=== PATIENT | female | born 1945 | race Caucasian/White ===

== ENCOUNTER 2022-03-14 11:35 | Observation (INO) ==
--- NOTE | 2022-03-14 12:53 | DR.H&P ---
H&P - History & Physical for Day of: H&P Date: 03/14/22 - Chief Complaint Chief Complaint: WEAKNESS, TREMORS, QUESTIONABLE TIA VS CVA - History of Present Illness History of Present Illness: Patient is a 76 year old female that is a direct adm it per Dr. Sexton's office secondary to weakness, right sided weakness and difficulty speaking. Son reports that she started having issues with speaking and forming sentences a couple of days ago. States that she developed tremors yesterday. Reports BP and BS have been stable at home. Denied chest pain or shortness of breath. Does have history of CVA. Reports that she has been taking all meds as prescribed. Patient will be admitted for further evaluation. - Past Medical History Past Medical History: Arthritis, COPD, CVA, Hypertension - Past Surgical History Surgical History: Ortho Surgery, Tonsillectomy - Family History Family Medical History: Diabetes Mellitus, Cancer, [place], Coronary Artery Disease, Heart Failure, Sudden Cardiac , Hypertension - Social History Does patient currently use any type of tobacco product: No Have you used tobacco products in the last 12 months: No Type of Tobacco Use: None Alcohol Use: None Drug Use: None - Medications Home Medications: MS No Known Drug Allergy [No Known Drug Allergy] Allergy (Verified 12/18/15 12:21) - Review of Systems Constitutional: See HPI, Weakness Eyes: See HPI ENT: See HPI Respiratory: See HPI Cardiovascular: See HPI Gastrointestinal: See HPI Genitourinary: See HPI Musculoskeletal: See HPI Skin: See HPI Neurological: See HPI, Weakness, Change in Speech - Physical Exam Vital Signs: Blood Pressure [Right Arm] 156/88 Blood Pressure [Left Arm] 131/67 Blood Pressure 156/88 Oriented: Normal Eyes: Normal Ear: Normal Nose: Normal Throat: Normal Respiratory: Clear Throughout Cardiovascular: Normal : Normal Auscultation: Bowel Sounds: Normal Palpation: Normal Tenderness: Normal Skin: Normal Musculoskeletal: Shoulder, Motor Deficit, Instability Psychiatric: Normal Mood Description: Calm, Appropriate Affect: Normal Speech Pattern: Appropriate (delayed in forming sentences. Difficulty forming words), Delayed - Assessment/Plan (1) TIA (transient ischemic attack) Status: Acute Plan: TIA vs CVA. CT head. CBC, CMP, Troponin, EKG, UA (2) Right sided weakness Status: Acute - Allergies Allergies/Adverse Reactions: Allergies Allergy/AdvReac Type Severity Reaction Status Date / Time MS No Known Drug Allergy Allergy Verified 12/18/15 12:21 [No Known Drug Allergy]
[2022-03-14] MEDS ORDERED: NS 1,000 ML IV 1,000 ML ONE (13:28)
[2022-03-14] MEDS ORDERED: NS 1,000 ML IV 1,000 ML IV ONE (13:29)
[2022-03-14 14:02] LABS: BASOPHILS # (AUTO) 0.1 X10^3/uL (0.0-0.1); BASOPHILS % (AUTO) 0.7 % (0.2-1.0); EOSINOPHILS # (AUTO) 0.2 x10^3/uL (0.0-0.2); EOSINOPHILS % (AUTO) 3.1 % (0.9-2.9); HEMATOCRIT 39.5 % (36.0-47.0); HEMOGLOBIN 13.5 g/dL (12.0-16.0); LYMPHOCYTES # (AUTO) 1.8 X10^3/uL (1.3-2.9); LYMPHOCYTES % (AUTO) 23.2 % (21.0-51.0); MEAN CORPUSCULAR HEMOGLOBIN 29.5 pg (27.0-34.0); MEAN CORPUSCULAR HGB CONC 34.3 g/dL (33.0-35.0); MEAN PLATELET VOLUME 8.5 fL (7.4-11.0); MONOCYTES # (AUTO) 0.7 x10^3/uL (0.3-0.8); MONOCYTES % (AUTO) 8.6 % (0.0-13.0); NEUTROPHILS % (AUTO) 64.4 % (42.0-75.0); RED BLOOD COUNT 4.59 X10^6/uL (3.5-5.4); RED CELL DISTRIBUTION WIDTH 13.2 % (11.6-16.5); WHITE BLOOD COUNT 7.7 X10^3/uL (3.6-10.0)
[2022-03-14 15:18] LABS: BILIRUBIN,URINE NEGATIVE (NEGATIVE); BLOOD/HEMOGLOBIN,URINE 1+ (NEGATIVE); GLUCOSE, URINE NEGATIVE (NEGATIVE); KETONES,URINE NEGATIVE (NEGATIVE); LEUKOCYTE ESTERASE ,URINE 1+ (NEGATIVE); NITRITES,URINE NEGATIVE (NEGATIVE); PROTEIN,URINE NEGATIVE (NEGATIVE); UROBILINOGEN,URINE 2+ (NORMAL)
[2022-03-14 15:29] LABS: APPEARANCE,URINE CLEAR (CLEAR); BACTERIA,URINE TRACE /HPF (NEGATIVE); COLOR,URINE YELLOW (YELLOW); SQUAMOUS EPITHELIAL CELL,UR FEW /HPF (NEGATIVE)
[2022-03-14 15:48] VITALS: BMI 31.4
--- NOTE | 2022-03-14 15:54 | CT ---
HISTORYWeakness and difficulty with speechSTUDYBRAIN W/O CONCOMPARISONMRI brain, July 18, [address] head without contrast from July 17, 2020TECHNIQUEAxial non-contrast images of the head were obtained with coronal and sagittal reformats provided.Radiation dose: 1155.20 mGy-cm total DLPFINDINGSNo abnormal areas of acute attenuation in the brain parenchyma.Lima-white differentiation remains intact.No intracranial, extra-axial, fluid collection.No hemorrhage.Periventricular chronic microvascular disease.No mass, mass effect or midline shift.Age related brain parenchymal global atrophy.No ventriculomegaly.No acute fracture.Sinuses are well aerated.Mastoid air cells are well aerated.Globes and intra-orbital contents are unremarkable.IMPRESSIONNo acute intracranial abnormality identified.Electronically signed by: Yuri Domingo (Mar 14, 2022 15:53:21)
[2022-03-14 15:57] LABS: ALANINE AMINOTRANSFERASE 13 Units/L (12-78); ALBUMIN 3.4 g/dL (3.4-5.0); ALKALINE PHOSPHATASE 66 Units/L (46-116); ASPARTATE AMINO TRANSFERASE 16 Units/L (15-37); BLOOD UREA NITROGEN 15 mg/dL (7-18); CALCIUM 8.4 mg/dL (8.5-10.1); CARBON DIOXIDE 26.3 mmol/L (21-32); CHLORIDE 102 mmol/L (98-107); COR NA(FOR HYPERGLY) 139 mmol/L (136-145); CREATININE 0.78 mg/dL (0.55-1.02); SODIUM 137 mmol/L (136-145); TOTAL PROTEIN 6.9 g/dL (6.4-8.2); TSH (3RD GENERATION) 2.558 uIU/mL (0.358-3.74); eGFR NON BLACK RACES > 60 (>60)
[2022-03-14] MEDS: NS 1,000 ML IV 1,000 ML IV SCH (16:28)
--- NOTE | 2022-03-14 16:42 | RAD ---
HISTORYright side weaknessSTUDYCHEST, 1 VIEWCOMPARISONNoneFINDINGSFocal areas of opacity are present in the upper right lung in the lower right lung suggesting bronchopneumonia. Left lung clear. No pleural effusion or pneumothorax.The heart size is magnified. Vascular calcifications are present compatible with atherosclerosis.Degenerative changes are present in the right glenohumeral joint. [Shoulder prosthesis on the left.EKG leads are noted. ]IMPRESSION1. Findings suggesting right pneumoniaElectronically signed by: Flo Wilks (Mar 14, 2022 16:41:15)
--- NOTE | 2022-03-14 17:15 | VAS ---
HISTORY: Concern for carotid artery stenosis. Syncope.EXAM: BILATERAL DOPPLER CAROTID ULTRASOUND EXAMTechnique: Multiple hannah scale and color flow Doppler images of the right and left carotid arterial system were obtained.The vertebral arterial system was evaluated as well.Findings: Nonocclusive color flow Doppler is seen throughout the right and left carotid arterial system. No hemodynamically significant carotid arterial stenosis is seen based on velocity criteria. There is mild bilateral carotid atherosclerosis and mixed atherosclerotic plaque formation of the bilateral carotid bulbs and ICAs with associated intimal thickening but without evidence for high-grade stenosis (>70%) or occlusion of the carotid arteries. The right and left vertebral artery demonstrate antegrade flow.IMPRESSION:Mild bilateral carotid atherosclerosis and mixed atherosclerotic plaque formation of the bilateral carotid bulbs and [in both] ICAs with [id number] associated carotid intimal thickening but without evidence for any associated high-grade stenosis or occlusion of the carotid arteries, based on Doppler velocity criteria.Appropriate, antegrade, vertebral arterial flow.Peak right ICA velocity: 63 centimeter/seconds.Peak right CCA velocity: 43 centimeter/seconds.Peak left ICA velocity: 108 centimeter/seconds.Peak left CCA velocity: 46 centimeter/seconds.Right ICA to CCA ratio: 1.4.Left ICA to CCA ratio: 2.0.Electronically signed by: LAURA BRAR III (Mar 14, 2022 17:14:51)
[2022-03-14] MEDS: TYLENOL 325 MG TAB PO PRN (18:31)
[2022-03-14] MEDS ORDERED: TOPROL XL PO ONE (20:01)
[2022-03-14] MEDS ORDERED: GLUCOPHAGE ONE (20:01)
[2022-03-14] MEDS ORDERED: LIORESAL ONE (20:02)
[2022-03-14] MEDS: NEURONTIN CAP 100 MG PO SCH (20:39)
[2022-03-14] MEDS: DITROPAN TAB 5 MG PO SCH (20:39)
[2022-03-14] MEDS: GLUCOPHAGE PO SCH (20:39)
[2022-03-14] MEDS: PATIENT'S HOME MEDICATION PO SCH ×2 (20:40→20:41)
[2022-03-14] MEDS: TOPROL XL PO SCH (20:40)
[2022-03-14] MEDS: LIORESAL PO SCH (21:21)
[2022-03-15] MEDS ORDERED: NYSTATIN POWDER ONE (04:06)
[2022-03-15] MEDS: TYLENOL 325 MG TAB PO PRN ×3 (04:16→20:42)
[2022-03-15 05:13] LABS: BASOPHILS # (AUTO) 0.1 X10^3/uL (0.0-0.1); BASOPHILS % (AUTO) 0.8 % (0.2-1.0); EOSINOPHILS # (AUTO) 0.3 x10^3/uL (0.0-0.2); EOSINOPHILS % (AUTO) 3.8 % (0.9-2.9); HEMATOCRIT 37.3 % (36.0-47.0); HEMOGLOBIN 12.7 g/dL (12.0-16.0); LYMPHOCYTES % (AUTO) 29.7 % (21.0-51.0); MEAN CORPUSCULAR HEMOGLOBIN 29.4 pg (27.0-34.0); MEAN CORPUSCULAR VOLUME 86.4 fL (80.0-100.0); MEAN PLATELET VOLUME 8.7 fL (7.4-11.0); MONOCYTES # (AUTO) 0.6 x10^3/uL (0.3-0.8); MONOCYTES % (AUTO) 8.6 % (0.0-13.0); NEUTROPHILS # (AUTO) 3.9 x10^3/uL (2.2-4.8); NEUTROPHILS % (AUTO) 57.1 % (42.0-75.0); RED BLOOD COUNT 4.31 X10^6/uL (3.5-5.4); RED CELL DISTRIBUTION WIDTH 13.5 % (11.6-16.5); WHITE BLOOD COUNT 6.8 X10^3/uL (3.6-10.0)
[2022-03-15 05:17] LABS: ALANINE AMINOTRANSFERASE 12 Units/L (12-78); ALBUMIN 2.9 g/dL (3.4-5.0); ALKALINE PHOSPHATASE 52 Units/L (46-116); ASPARTATE AMINO TRANSFERASE 12 Units/L (15-37); BLOOD UREA NITROGEN 10 mg/dL (7-18); CALCIUM 8.1 mg/dL (8.5-10.1); CARBON DIOXIDE 28.6 mmol/L (21-32); CHLORIDE 105 mmol/L (98-107); CHOLESTEROL 122 mg/dL (0-200); CREATININE 0.59 mg/dL (0.55-1.02); HDL CHOLESTEROL 41 mg/dL (40-60); SODIUM 141 mmol/L (136-145); TRIGLYCERIDES 138 mg/dL (0-150); eGFR NON BLACK RACES > 60 (>60)
[2022-03-15] MEDS: LIORESAL PO SCH ×3 (06:06→22:00)
[2022-03-15] MEDS ORDERED: PULMICORT NEB TX 0.5 MG NEB SCH (09:00)
[2022-03-15] MEDS: ROCEPHIN VIAL 1 GRAM 1 G in NS 100 ML IV 100 ML IV SCH ×2 (09:31→10:16)
[2022-03-15] MEDS ORDERED: TOPROL XL PO ONE ×2 (09:43→19:30)
[2022-03-15] MEDS ORDERED: GLUCOPHAGE ONE ×2 (09:43→19:30)
[2022-03-15] MEDS ORDERED: LEXAPRO ONE (09:43)
[2022-03-15] MEDS: LOVENOX INJ 40 MG SYR SC SCH (09:48)
[2022-03-15] MEDS: NEURONTIN CAP 100 MG PO SCH ×2 (09:49→20:42)
[2022-03-15] MEDS: TOPROL XL PO SCH ×2 (09:50→20:42)
[2022-03-15] MEDS: PRAVACHOL PO SCH (09:51)
[2022-03-15] MEDS: GLUCOPHAGE PO SCH ×2 (09:52→20:43)
[2022-03-15] MEDS: LEXAPRO PO SCH (09:52)
[2022-03-15] MEDS: LASIX PO SCH (09:52)
[2022-03-15] MEDS: ASPIRIN 81 MG CHEWTAB PO SCH (09:53)
[2022-03-15] MEDS: ZESTRIL TAB 10 MG PO SCH (09:53)
[2022-03-15] MEDS: PLAVIX PO SCH (09:53)
[2022-03-15] MEDS: NYSTATIN POWDER TOP SCH ×2 (09:54→20:42)
[2022-03-15] MEDS: PROTONIX TAB 40 MG PO SCH (09:54)
[2022-03-15] MEDS: DITROPAN TAB 5 MG PO SCH ×2 (09:59→20:42)
[2022-03-15] MEDS: PATIENT'S HOME MEDICATION PO SCH ×3 (10:16→20:43)
[2022-03-15] MEDS ORDERED: XOPENEX 1.25 MG/3 ML NEBULE NEB SCH (12:00)
[2022-03-15] MEDS ORDERED: SALINE 3% 15 ML NEB TX NEB ONE (12:50)
[2022-03-15] MEDS: DUONEB 0.5 MG/3 MG (3 mL) NEB SCH ×2 (12:59→16:45)
[2022-03-15] MEDS: NS 1,000 ML IV 1,000 ML IV SCH (14:11)
[2022-03-15] MEDS: ULTRAM PO PRN (14:15)
[2022-03-15] MEDS: XANAX PO PRN (18:29)
[2022-03-15] MEDS: PULMICORT NEB TX 0.5 MG NEB SCH (20:30)
[2022-03-16] MEDS: DUONEB 0.5 MG/3 MG (3 mL) NEB SCH ×4 (00:02→17:35)
[2022-03-16] MEDS: TOPROL XL PO SCH ×3 (01:25→21:00)
[2022-03-16 05:16] LABS: BASOPHILS % (AUTO) 0.5 % (0.2-1.0); EOSINOPHILS # (AUTO) 0.2 x10^3/uL (0.0-0.2); EOSINOPHILS % (AUTO) 2.7 % (0.9-2.9); HEMATOCRIT 37.8 % (36.0-47.0); HEMOGLOBIN 12.7 g/dL (12.0-16.0); LYMPHOCYTES % (AUTO) 22.7 % (21.0-51.0); MEAN CORPUSCULAR HEMOGLOBIN 29.3 pg (27.0-34.0); MEAN CORPUSCULAR HGB CONC 33.6 g/dL (33.0-35.0); MEAN PLATELET VOLUME 8.8 fL (7.4-11.0); MONOCYTES # (AUTO) 0.9 x10^3/uL (0.3-0.8); MONOCYTES % (AUTO) 9.8 % (0.0-13.0); NEUTROPHILS # (AUTO) 5.8 x10^3/uL (2.2-4.8); NEUTROPHILS % (AUTO) 64.3 % (42.0-75.0); RED BLOOD COUNT 4.34 X10^6/uL (3.5-5.4); RED CELL DISTRIBUTION WIDTH 13.5 % (11.6-16.5)
[2022-03-16] MEDS: ULTRAM PO PRN ×3 (05:22→19:35)
[2022-03-16] MEDS: LIORESAL PO SCH ×3 (05:22→21:01)
[2022-03-16 05:38] LABS: ALANINE AMINOTRANSFERASE 12 Units/L (12-78); ALBUMIN 2.9 g/dL (3.4-5.0); ALKALINE PHOSPHATASE 55 Units/L (46-116); ASPARTATE AMINO TRANSFERASE 14 Units/L (15-37); BLOOD UREA NITROGEN 12 mg/dL (7-18); CALCIUM 8.1 mg/dL (8.5-10.1); CARBON DIOXIDE 33.3 mmol/L (21-32); CHLORIDE 102 mmol/L (98-107); COR NA(FOR HYPERGLY) 139 mmol/L (136-145); CREATININE 0.81 mg/dL (0.55-1.02); SODIUM 139 mmol/L (136-145); eGFR NON BLACK RACES > 60 (>60)
--- NOTE | 2022-03-16 08:25 | MRI ---
HISTORYSLURRED SPEECH.brSTUDYBRAIN W/O CONCOMPARISONCT head 03/14/2022.TECHNIQUEMultiplanar multi-sequence MRI of the brain was obtained utilizing standard departmental protocol. Sagittal and axial T1 weighted images were obtained. Axial T2 and flair weighted images were performed as well. Axial diffusion weighted and ADC trace mapping was performed.FINDINGSThere is motion artifact on some sequences such as the axial T1 and coronal T2 limiting evaluation.Diffusion imaging: [Bright DWI signal in the right periventricular white matter image 13 series 502 has bright signal on the DWI sequence and is consistent with T2 shine through.]Susceptibility weighted imaging: [No abnormal susceptibility artifact.]Brain volume: [Appropriate for age.]Ventricles and basal cisterns: FLAIR bright signal in the basilar cisterns and 4th ventricle is nonspecific but often due to technical artifact. No abnormal signal in these locations on other pulse sequences. No hydrocephalus.Extra-axial spaces: [No extra-axial collection.]Cerebral parynchema: [No mass, hematoma, or mass effect.] Mild amount of T2 and Flair hyperintensities in the supratentorial subcortical and deep white matter.Pituitary and other sagittal midline structures: [Empty sella.]Visualized orbits: [Normal.]Paranasal sinuses and mastoid air cells: [Clear.]Bones: [Intact.]Other: [None.]IMPRESSION[No abnormal restricted diffusion to suggest acute infarct. Mild T2 and FLAIR hyperintensities in the supratentorial white matter are nonspecific but often attributed to chronic small vessel disease.]FLAIR bright signal in the basilar cisterns and 4th ventricle is nonspecific but often due to technical artifact. No abnormal signal in these locations on other pulse sequences. No hydrocephalus.Electronically signed by: Gus Connelly (Mar 16, 2022 08:24:51)
[2022-03-16] MEDS: PULMICORT NEB TX 0.5 MG NEB SCH ×2 (09:05→20:40)
[2022-03-16] MEDS ORDERED: GLUCOPHAGE ONE ×2 (09:15→20:27)
[2022-03-16] MEDS ORDERED: TOPROL XL PO ONE ×2 (09:16→20:28)
[2022-03-16] MEDS ORDERED: LEXAPRO ONE (09:16)
[2022-03-16] MEDS: LOVENOX INJ 40 MG SYR SC SCH (09:49)
[2022-03-16] MEDS: ROCEPHIN VIAL 1 GRAM 1 G in NS 100 ML IV 100 ML IV SCH (09:50)
[2022-03-16] MEDS: LASIX PO SCH (09:50)
[2022-03-16] MEDS: DITROPAN TAB 5 MG PO SCH ×2 (09:51→21:01)
[2022-03-16] MEDS: ASPIRIN 81 MG CHEWTAB PO SCH (09:51)
[2022-03-16] MEDS: LEXAPRO PO SCH (09:52)
[2022-03-16] MEDS: NYSTATIN POWDER TOP SCH ×2 (09:53→21:09)
[2022-03-16] MEDS: NEURONTIN CAP 100 MG PO SCH ×2 (09:53→21:00)
[2022-03-16] MEDS: PRAVACHOL PO SCH (09:54)
[2022-03-16] MEDS: GLUCOPHAGE PO SCH ×2 (09:54→21:03)
[2022-03-16] MEDS: PATIENT'S HOME MEDICATION PO SCH ×3 (09:54→21:45)
[2022-03-16] MEDS: PROTONIX TAB 40 MG PO SCH (09:55)
[2022-03-16] MEDS: PLAVIX PO SCH (09:55)
[2022-03-16] MEDS: ZESTRIL TAB 10 MG PO SCH (09:56)
[2022-03-16] MEDS ORDERED: POTASSIUM CHL 60 MEQ/NS 0.45% 500 ML IV PRN (12:26)
[2022-03-16] MEDS ORDERED: K-DUR TAB 20 MEQ PO PRN (12:26)
[2022-03-16] MEDS ORDERED: K-RIDER 10 MEQ/NS 100 ML 10 MEQ/100 ML BAG IV PRN (12:26)
[2022-03-16] MEDS ORDERED: KLOR-CON PO PRN (12:26)
[2022-03-16] MEDS ORDERED: POTASSIUM CHL 40 MEQ/NS 0.45% 500 ML IV PRN (12:26)
[2022-03-16] MEDS ORDERED: POTASSIUM CHLORIDE LIQ 20 MEQ UDC PO PRN (12:26)
[2022-03-16] MEDS ORDERED: MICRO K EXTEN CAP 10 MEQ PO PRN (12:26)
[2022-03-16] MEDS: MAGNESIUM SULFATE 1 GRAM/100 mL PREMIX 1 G/100 ML BAG IV PRN ×2 (13:45→16:07)
[2022-03-16] MEDS: ROBITUSSIN DM PO SCH ×3 (13:45→21:00)
[2022-03-16] MEDS: XANAX PO PRN (13:46)
[2022-03-16] MEDS: NS 1,000 ML IV 1,000 ML IV SCH (14:46)
--- NOTE | 2022-03-16 14:59 | RAD ---
HISTORYSOB Relevant Clinical InformationSTUDYCHEST, 1 [id number]/13/2022FINDINGSTrachea is midline. Stable borderline heart size, prominence of the aortic knob. No evidence of focal pneumonia, pneumothorax or pleural effusions. There is mild central vascular congestion without mehul pulmonary edema. Chronic changes at the bases. No dominant effusions no pneumothorax. Left shoulder prosthesisIMPRESSIONInterstitial chronic changes at the bases and in the perihilar region. Mild vascular cephalization without mehul pulmonary edema.Electronically signed by: Gena Schilling (Mar 16, 2022 14:58:06)
[2022-03-17] MEDS: DUONEB 0.5 MG/3 MG (3 mL) NEB SCH ×4 (00:15→17:15)
[2022-03-17] MEDS: ULTRAM PO PRN ×4 (01:15→19:37)
[2022-03-17 05:06] LABS: BASOPHILS % (AUTO) 0.4 % (0.2-1.0); EOSINOPHILS # (AUTO) 0.3 x10^3/uL (0.0-0.2); EOSINOPHILS % (AUTO) 3.1 % (0.9-2.9); HEMATOCRIT 37.6 % (36.0-47.0); HEMOGLOBIN 12.8 g/dL (12.0-16.0); LYMPHOCYTES # (AUTO) 1.8 X10^3/uL (1.3-2.9); LYMPHOCYTES % (AUTO) 21.9 % (21.0-51.0); MEAN CORPUSCULAR HEMOGLOBIN 29.3 pg (27.0-34.0); MEAN CORPUSCULAR VOLUME 86.4 fL (80.0-100.0); MEAN PLATELET VOLUME 8.4 fL (7.4-11.0); MONOCYTES # (AUTO) 0.7 x10^3/uL (0.3-0.8); MONOCYTES % (AUTO) 8.8 % (0.0-13.0); NEUTROPHILS # (AUTO) 5.3 x10^3/uL (2.2-4.8); NEUTROPHILS % (AUTO) 65.8 % (42.0-75.0); RED BLOOD COUNT 4.35 X10^6/uL (3.5-5.4); RED CELL DISTRIBUTION WIDTH 13.3 % (11.6-16.5); WHITE BLOOD COUNT 8.1 X10^3/uL (3.6-10.0)
[2022-03-17 05:27] LABS: ALANINE AMINOTRANSFERASE 18 Units/L (12-78); ALBUMIN 3.1 g/dL (3.4-5.0); ALKALINE PHOSPHATASE 64 Units/L (46-116); ASPARTATE AMINO TRANSFERASE 20 Units/L (15-37); BLOOD UREA NITROGEN 10 mg/dL (7-18); CALCIUM 8.2 mg/dL (8.5-10.1); CARBON DIOXIDE 33.3 mmol/L (21-32); CHLORIDE 98 mmol/L (98-107); COR CA(FOR HYPOALB) 8.9 mg/dL (8.5-10.1); COR NA(FOR HYPERGLY) 134 mmol/L (136-145); CREATININE 0.68 mg/dL (0.55-1.02); MAGNESIUM 2.1 mg/dL (1.7-2.9); SODIUM 134 mmol/L (136-145); TOTAL PROTEIN 6.3 g/dL (6.4-8.2); eGFR NON BLACK RACES > 60 (>60)
[2022-03-17] MEDS: LIORESAL PO SCH ×3 (05:55→21:38)
[2022-03-17] MEDS ORDERED: GLUCOPHAGE ONE ×2 (08:11→20:02)
[2022-03-17] MEDS ORDERED: LEXAPRO ONE (08:12)
[2022-03-17] MEDS ORDERED: TOPROL XL PO ONE ×2 (08:12→20:03)
[2022-03-17] MEDS: ROCEPHIN VIAL 1 GRAM 1 G in NS 100 ML IV 100 ML IV SCH (08:31)
[2022-03-17] MEDS: ROBITUSSIN DM PO SCH ×4 (08:32→20:55)
[2022-03-17] MEDS: ASPIRIN 81 MG CHEWTAB PO SCH (08:32)
[2022-03-17] MEDS: PLAVIX PO SCH (08:32)
[2022-03-17] MEDS: GLUCOPHAGE PO SCH ×2 (08:33→20:53)
[2022-03-17] MEDS: LASIX PO SCH (08:36)
[2022-03-17] MEDS: TOPROL XL PO SCH ×2 (08:36→20:53)
[2022-03-17] MEDS: PRAVACHOL PO SCH (08:37)
[2022-03-17] MEDS: DITROPAN TAB 5 MG PO SCH ×2 (08:37→20:52)
[2022-03-17] MEDS: PROTONIX TAB 40 MG PO SCH (08:37)
[2022-03-17] MEDS: NEURONTIN CAP 100 MG PO SCH ×2 (08:37→20:54)
[2022-03-17] MEDS: LEXAPRO PO SCH (08:37)
[2022-03-17] MEDS: ZESTRIL TAB 10 MG PO SCH (08:37)
[2022-03-17] MEDS: MILK OF MAGNESIA PO SCH ×2 (08:38→20:54)
[2022-03-17] MEDS: PATIENT'S HOME MEDICATION PO SCH ×3 (08:38→20:55)
[2022-03-17] MEDS: LOVENOX INJ 40 MG SYR SC SCH (08:38)
[2022-03-17] MEDS: XANAX PO PRN (08:38)
[2022-03-17] MEDS: PULMICORT NEB TX 0.5 MG NEB SCH ×2 (09:42→20:47)
[2022-03-17] MEDS: NYSTATIN POWDER TOP SCH ×2 (10:50→20:54)
[2022-03-17] MEDS: NS 1,000 ML IV 1,000 ML IV SCH (16:48)
[2022-03-17] MEDS: COLACE CAP 100 MG PO SCH (20:52)
[2022-03-17] MEDS: TYLENOL 325 MG TAB PO PRN (21:39)
[2022-03-18] MEDS: DUONEB 0.5 MG/3 MG (3 mL) NEB SCH ×5 (00:12→21:20)
[2022-03-18 04:43] LABS: BASOPHILS # (AUTO) 0.3 X10^3/uL (0.0-0.1); BASOPHILS % (AUTO) 4.5 % (0.2-1.0); EOSINOPHILS # (AUTO) 0.2 x10^3/uL (0.0-0.2); EOSINOPHILS % (AUTO) 3.3 % (0.9-2.9); HEMATOCRIT 36.2 % (36.0-47.0); HEMOGLOBIN 12.2 g/dL (12.0-16.0); LYMPHOCYTES % (AUTO) 13.9 % (21.0-51.0); MEAN CORPUSCULAR HEMOGLOBIN 29.3 pg (27.0-34.0); MEAN CORPUSCULAR HGB CONC 33.6 g/dL (33.0-35.0); MEAN CORPUSCULAR VOLUME 87.1 fL (80.0-100.0); MEAN PLATELET VOLUME 8.7 fL (7.4-11.0); MONOCYTES # (AUTO) 0.6 x10^3/uL (0.3-0.8); MONOCYTES % (AUTO) 8.3 % (0.0-13.0); NEUTROPHILS # (AUTO) 5.2 x10^3/uL (2.2-4.8); RED BLOOD COUNT 4.16 X10^6/uL (3.5-5.4); RED CELL DISTRIBUTION WIDTH 13.2 % (11.6-16.5); WHITE BLOOD COUNT 7.4 X10^3/uL (3.6-10.0)
[2022-03-18 04:56] LABS: ALANINE AMINOTRANSFERASE 13 Units/L (12-78); ALBUMIN 2.9 g/dL (3.4-5.0); ALKALINE PHOSPHATASE 69 Units/L (46-116); ASPARTATE AMINO TRANSFERASE 14 Units/L (15-37); BLOOD UREA NITROGEN 8 mg/dL (7-18); CALCIUM 8.1 mg/dL (8.5-10.1); CARBON DIOXIDE 33.7 mmol/L (21-32); CHLORIDE 100 mmol/L (98-107); COR NA(FOR HYPERGLY) 138 mmol/L (136-145); CREATININE 0.71 mg/dL (0.55-1.02); SODIUM 137 mmol/L (136-145); TOTAL PROTEIN 6.1 g/dL (6.4-8.2); eGFR NON BLACK RACES > 60 (>60)
[2022-03-18] MEDS: LIORESAL PO SCH ×3 (06:03→21:03)
[2022-03-18] MEDS: ULTRAM PO PRN ×2 (06:03→20:40)
[2022-03-18] MEDS ORDERED: GLUCOPHAGE ONE ×2 (08:36→20:12)
[2022-03-18] MEDS ORDERED: LEXAPRO ONE (08:37)
[2022-03-18] MEDS ORDERED: TOPROL XL PO ONE ×2 (08:37→20:13)
[2022-03-18] MEDS: GLUCOPHAGE PO SCH ×2 (08:49→20:42)
[2022-03-18] MEDS: ASPIRIN 81 MG CHEWTAB PO SCH (08:51)
[2022-03-18] MEDS: ZESTRIL TAB 10 MG PO SCH (08:54)
[2022-03-18] MEDS: ROCEPHIN VIAL 1 GRAM 1 G in NS 100 ML IV 100 ML IV SCH (08:54)
[2022-03-18] MEDS: PATIENT'S HOME MEDICATION PO SCH ×3 (08:55→20:49)
[2022-03-18] MEDS: PULMICORT NEB TX 0.5 MG NEB SCH ×2 (08:55→21:20)
[2022-03-18] MEDS: TOPROL XL PO SCH ×2 (08:55→20:43)
[2022-03-18] MEDS: PROTONIX TAB 40 MG PO SCH (08:55)
[2022-03-18] MEDS: NEURONTIN CAP 100 MG PO SCH ×2 (08:56→20:39)
[2022-03-18] MEDS: LEXAPRO PO SCH (08:56)
[2022-03-18] MEDS: MILK OF MAGNESIA PO SCH ×2 (08:57→20:50)
[2022-03-18] MEDS: ROBITUSSIN DM PO SCH ×4 (08:57→20:39)
[2022-03-18] MEDS: PRAVACHOL PO SCH (08:58)
[2022-03-18] MEDS: PLAVIX PO SCH (08:58)
[2022-03-18] MEDS: LOVENOX INJ 40 MG SYR SC SCH (08:59)
[2022-03-18] MEDS: LASIX PO SCH (08:59)
[2022-03-18] MEDS: DITROPAN TAB 5 MG PO SCH ×2 (09:00→20:43)
[2022-03-18] MEDS: NYSTATIN POWDER TOP SCH ×2 (09:00→20:50)
[2022-03-18] MEDS: NS 1,000 ML IV 1,000 ML IV SCH ×2 (14:40→16:36)
[2022-03-18] MEDS: COLACE CAP 100 MG PO SCH (20:43)
[2022-03-19 04:45] LABS: BASOPHILS # (AUTO) 0.1 X10^3/uL (0.0-0.1); BASOPHILS % (AUTO) 0.7 % (0.2-1.0); EOSINOPHILS # (AUTO) 0.3 x10^3/uL (0.0-0.2); EOSINOPHILS % (AUTO) 4.7 % (0.9-2.9); HEMATOCRIT 36.8 % (36.0-47.0); HEMOGLOBIN 12.4 g/dL (12.0-16.0); LYMPHOCYTES # (AUTO) 1.7 X10^3/uL (1.3-2.9); LYMPHOCYTES % (AUTO) 22.7 % (21.0-51.0); MEAN CORPUSCULAR HEMOGLOBIN 29.4 pg (27.0-34.0); MEAN CORPUSCULAR HGB CONC 33.7 g/dL (33.0-35.0); MEAN CORPUSCULAR VOLUME 87.2 fL (80.0-100.0); MEAN PLATELET VOLUME 8.5 fL (7.4-11.0); MONOCYTES # (AUTO) 0.6 x10^3/uL (0.3-0.8); MONOCYTES % (AUTO) 8.5 % (0.0-13.0); NEUTROPHILS # (AUTO) 4.6 x10^3/uL (2.2-4.8); NEUTROPHILS % (AUTO) 63.4 % (42.0-75.0); RED BLOOD COUNT 4.22 X10^6/uL (3.5-5.4); RED CELL DISTRIBUTION WIDTH 13.3 % (11.6-16.5); WHITE BLOOD COUNT 7.3 X10^3/uL (3.6-10.0)
[2022-03-19 05:02] LABS: ALANINE AMINOTRANSFERASE 14 Units/L (12-78); ALKALINE PHOSPHATASE 69 Units/L (46-116); ASPARTATE AMINO TRANSFERASE 17 Units/L (15-37); BLOOD UREA NITROGEN 11 mg/dL (7-18); CALCIUM 8.4 mg/dL (8.5-10.1); CARBON DIOXIDE 36.4 mmol/L (21-32); CHLORIDE 98 mmol/L (98-107); COR CA(FOR HYPOALB) 9.2 mg/dL (8.5-10.1); COR NA(FOR HYPERGLY) 135 mmol/L (136-145); CREATININE 0.76 mg/dL (0.55-1.02); SODIUM 134 mmol/L (136-145); TOTAL PROTEIN 6.3 g/dL (6.4-8.2); eGFR NON BLACK RACES > 60 (>60)
[2022-03-19] MEDS: LIORESAL PO SCH (05:57)
[2022-03-19] MEDS: PULMICORT NEB TX 0.5 MG NEB SCH (08:26)
[2022-03-19] MEDS: DUONEB 0.5 MG/3 MG (3 mL) NEB SCH ×2 (08:26→13:02)
[2022-03-19] MEDS ORDERED: TOPROL XL PO ONE (09:01)
[2022-03-19] MEDS ORDERED: GLUCOPHAGE ONE (09:01)
[2022-03-19] MEDS ORDERED: LEXAPRO ONE (09:01)
[2022-03-19] MEDS: LOVENOX INJ 40 MG SYR SC SCH (09:30)
[2022-03-19] MEDS: ROCEPHIN VIAL 1 GRAM 1 G in NS 100 ML IV 100 ML IV SCH (09:30)
[2022-03-19] MEDS: ROBITUSSIN DM PO SCH ×2 (09:31→13:32)
[2022-03-19] MEDS: PLAVIX PO SCH (09:31)
[2022-03-19] MEDS: NEURONTIN CAP 100 MG PO SCH (09:31)
[2022-03-19] MEDS: LEXAPRO PO SCH (09:31)
[2022-03-19] MEDS: ASPIRIN 81 MG CHEWTAB PO SCH (09:31)
[2022-03-19] MEDS: DITROPAN TAB 5 MG PO SCH (09:32)
[2022-03-19] MEDS: PRAVACHOL PO SCH (09:32)
[2022-03-19] MEDS: PATIENT'S HOME MEDICATION PO SCH (09:33)
[2022-03-19] MEDS: LASIX PO SCH (09:33)
[2022-03-19] MEDS: ZESTRIL TAB 10 MG PO SCH (09:33)
[2022-03-19] MEDS: GLUCOPHAGE PO SCH (09:34)
[2022-03-19] MEDS: TOPROL XL PO SCH (09:34)
[2022-03-19] MEDS: NYSTATIN POWDER TOP SCH (09:35)
[2022-03-19] MEDS: MILK OF MAGNESIA PO SCH (09:35)
[2022-03-19] MEDS: PROTONIX TAB 40 MG PO SCH (09:35)
[2022-03-19 12:56] VITALS: BP 122/62
--- NOTE | 2022-03-19 13:26 | RAD ---
HISTORYSOBSTUDYCHEST x-ray, 1 VIEWCOMPARISONX-ray 03/16/2022FINDINGSHeart is probably normal in size. Interstitial densities in the lungs appears slightly less prominent likely due to improved pulmonary edema. There is likely COPD and chronic interstitial lung disease. No pneumothorax or pleural effusion is seen. Left TSA and prominent arthritic changes in the right shoulder. Multiple calcified loose bodies are suspected in right shoulder.IMPRESSIONDiminished interstitial densities in the lungs likely represent improved pulmonary edema. There are likely COPD chronic interstitial lung disease changes.Electronically signed by: Jonathan Olmstead (Mar 19, 2022 13:25:59)
--- NOTE | 2022-05-01 23:47 | PCM.DCPLAN ---
Discharge Plan - Discharge Plan Hospital Course: Admit date 03/14/22 Discharge date 03/19/22 DOS 03/19/22 Admit diagnosis (1) TIA (transient ischemic attack) (2) Right sided weakness Discharge diagnosis TIA, Pneumonia, Hypertension, Right sided weakness Hospital Course Ms. Disla is a 76-year-old white female admitted from Dr. Brownlee's [place] office with suspected new onset CVA. She has had a history of a CVA reported per her family. Her CT on admission was without acute findings. She did have an MRI also without any signs of acute mass, hemorrhage, or CVA. Her son was concerned that she may need rehab. The patient does not want to do inpatient rehab. She did agree to physical therapy in the home as well as home health, and we are going to arrange for that upon discharge. Patient was treated for pneumonia with IV abx, breathing treatments, resp therapy. Patient's labs improved to baseline. Patient's neurological status returned to baseline. Blood and urine cultures negative; sputum culture positive. Patient discharged home with po antibiotics and to follow up with pcp. Discharge time spent >35 mins. Disposition: HOME HEALTH SERVICE Condition: Stable Health Concerns: Post Hospitalization: new medications and changes needed to prevent readmission or further decline. Pt educated and given instructions on all concerns. Care Plan Goals: Problem: Activity Intolerance Goal: Increased tolerance to activity Instructions: Follow provided instructions. Follow up with primary physician as directed. Contact primary care physician or report to the closest Emergency Room if condition worsens. Plan of Treatment: Continue with present treatment and follow up plan. Pt is to keep follow up appointment as instructed and take medications as ordered. Prescriptions: Continued aspirin 81 mg Tablet 81 mg PO DAILY baclofen 10 mg tablet 10 mg PO TID clopidogrel 75 mg tablet 75 mg PO HS escitalopram oxalate 10 mg tablet 10 mg PO DAILY furosemide 40 mg tablet 40 mg PO DAILY gabapentin 100 mg capsule 200 mg PO HS icosapent ethyl 1 gram capsule 2 g PO BID lisinopril 10 mg tablet 10 mg PO DAILY metformin 500 mg tablet 250 mg PO BID metoprolol succinate 100 mg tablet extended release 24 hr 100 mg PO BID nortriptyline 25 mg capsule 25 mg PO HS oxybutynin chloride 5 mg tablet 5 mg PO BID pantoprazole 40 mg tablet,delayed release (DR/EC) 40 mg PO DAILY pravastatin 80 mg tablet 80 mg PO HS No Action Trelegy Ellipta 100-62.5-25 mcg Blister With Device 1 inh INHALATION Q24H Qty: 1 RF: 0 - Follow ups/Referrals Follow ups/Referrals: KIM FUNG [STAFF PHYSICIAN] - (Referral sent to Vickie on 03/16/22) MANDIE BROWNLEE [STAFF PHYSICIAN] - 03/28/22 1:30 pm (Appointment with [place]) - Instructions Instructions: Fall Prevention in the Home, Adult, Ewfj-[id number], Stroke Prevention, Jzee-yx-[id number], Chronic Obstructive Pulmonary Disease, Klpz-kh-Ymdm, Type 2 Diabetes Mellitus, Self-Care, Adult, Cmcu-ou-Glnw, Transient Ischemic Attack, Znek-ev-Ynwv, Weakness, Iqqq-hy-Tlra, Hypertension, Adult, Vdfo-kv-Hgyk Forms: Precautions for [facility], Patient Portal, Social Distancing Print Language: HAITIAN
== END 2022-03-19 15:44 | disposition home health service (06) ==
LOC: MED/SURG 12:41 → INTOOBSV 12:41 → ICU 14:25 → MED/SURG 03-16 11:05
PROVIDERS: ADMIT Internal Medicine; ATTEND Internal Medicine
DX: Z20.822 Contact with and (suspected) exposure to COVID-19; J44.9 Chronic obstructive pulmonary disease, unspecified; R26.89 Other abnormalities of gait and mobility; I10 Essential (primary) hypertension; R06.02 Shortness of breath; R55 Syncope and collapse; J15.1 Pneumonia due to Pseudomonas; E03.8 Other specified hypothyroidism; R53.1 Weakness; R47.89 Other speech disturbances; G45.8 Other transient cerebral ischemic attacks and related syndromes; Z86.73 Personal history of transient ischemic attack (TIA), and cerebral infarction without residual deficits

== ENCOUNTER 2022-04-16 11:57 | Observation (INO) ==
[2022-04-16] MEDS ORDERED: PROVENTIL NEB TX 0.083% 2.5MG/ 3ML NEB PRN (13:30)
[2022-04-16] MEDS ORDERED: DUONEB 0.5 MG/3 MG (3 mL) NEB SCH (13:30)
[2022-04-16] MEDS: XOPENEX 1.25 MG/3 ML NEBULE NEB SCH ×2 (13:41→17:00)
[2022-04-16] MEDS: PULMICORT NEB TX 0.5 MG NEB SCH ×2 (13:41→21:10)
[2022-04-16] MEDS ORDERED: XOPENEX 1.25 MG/3 ML NEBULE NEB ONE (13:43)
[2022-04-16 13:53] LABS: ABG BASE EXCESS 8.1 mmol/L (-2.0-2.0); ABG HCO3 32.8 mmol/L (22-26)
[2022-04-16 13:54] LABS: ABG ALLEN TEST POS
[2022-04-16 14:17] LABS: BASOPHILS # (AUTO) 0.1 X10^3/uL (0.0-0.1); BASOPHILS % (AUTO) 0.4 % (0.2-1.0); EOSINOPHILS # (AUTO) 0.3 x10^3/uL (0.0-0.2); EOSINOPHILS % (AUTO) 2.6 % (0.9-2.9); HEMATOCRIT 41.9 % (36.0-47.0); HEMOGLOBIN 14.3 g/dL (12.0-16.0); LYMPHOCYTES # (AUTO) 1.8 X10^3/uL (1.3-2.9); LYMPHOCYTES % (AUTO) 13.5 % (21.0-51.0); MEAN CORPUSCULAR HGB CONC 34.1 g/dL (33.0-35.0); MEAN CORPUSCULAR VOLUME 85.1 fL (80.0-100.0); MEAN PLATELET VOLUME 8.5 fL (7.4-11.0); MONOCYTES # (AUTO) 0.9 x10^3/uL (0.3-0.8); MONOCYTES % (AUTO) 7.2 % (0.0-13.0); NEUTROPHILS % (AUTO) 76.3 % (42.0-75.0); RED BLOOD COUNT 4.92 X10^6/uL (3.5-5.4); WHITE BLOOD COUNT 13.1 X10^3/uL (3.6-10.0)
[2022-04-16 14:29] LABS: ALANINE AMINOTRANSFERASE 9 Units/L (12-78); ALBUMIN 3.3 g/dL (3.4-5.0); ALKALINE PHOSPHATASE 75 Units/L (46-116); ASPARTATE AMINO TRANSFERASE 12 Units/L (15-37); BLOOD UREA NITROGEN 10 mg/dL (7-18); CALCIUM 9.1 mg/dL (8.5-10.1); CARBON DIOXIDE 29.9 mmol/L (21-32); CHLORIDE 97 mmol/L (98-107); COR CA(FOR HYPOALB) 9.7 mg/dL (8.5-10.1); COR NA(FOR HYPERGLY) 138 mmol/L (136-145); SODIUM 136 mmol/L (136-145); TOTAL PROTEIN 7.6 g/dL (6.4-8.2); eGFR NON BLACK RACES > 60 (>60)
[2022-04-16] MEDS: TYLENOL 325 MG TAB PO PRN ×2 (15:00→23:22)
[2022-04-16] MEDS: NS 1,000 ML IV 1,000 ML IV SCH (15:00)
--- NOTE | 2022-04-16 15:30 | RAD ---
HISTORYCOPD EXACERBATION, SOBSTUDYCHEST x-ray, PA/LAT ADULTCOMPARISONX-ray 03/19/2022FINDINGSHeart is likely normal in size. There is calcification of the aortic arch. Interstitial densities in the lungs are similar to prior study. There is likely COPD and interstitial densities could be due to chronic interstitial lung disease. No pneumothorax or pleural effusion. Left TSA is seen with prominent arthritic changes in the right shoulder.IMPRESSIONPersistent abnormal interstitial densities in lungs could be chronic interstitial lung disease but could possibly be noncardiogenic pulmonary edema. No evidence of CHF.Electronically signed by: Jonathan Olmstead (April 16, 2022 15:28:07)
[2022-04-16] MEDS ORDERED: NS 100 ML IV 100 ML ONE (16:19)
[2022-04-16] MEDS ORDERED: ROCEPHIN VIAL 1 GRAM ONE (16:19)
[2022-04-16] MEDS: ROCEPHIN 1 GRAM IV PREMIX 1 G/50 ML IV.SOLN. IV SCH (16:20)
[2022-04-16] MEDS: LOVENOX INJ 40 MG SYR SC SCH (16:43)
[2022-04-16 18:09] LABS: BILIRUBIN,URINE NEGATIVE (NEGATIVE); BLOOD/HEMOGLOBIN,URINE 2+ (NEGATIVE); GLUCOSE, URINE NEGATIVE (NEGATIVE); KETONES,URINE NEGATIVE (NEGATIVE); LEUKOCYTE ESTERASE ,URINE 3+ (NEGATIVE); NITRITES,URINE NEGATIVE (NEGATIVE); PROTEIN,URINE 1+ (NEGATIVE); UROBILINOGEN,URINE NORMAL (NORMAL)
[2022-04-16 18:38] LABS: APPEARANCE,URINE HAZY (CLEAR); BACTERIA,URINE TRACE /HPF (NEGATIVE); COLOR,URINE YELLOW (YELLOW); RBC,URINE 0-2 /HPF (0-3); SQUAMOUS EPITHELIAL CELL,UR MODERATE /HPF (NEGATIVE)
[2022-04-16] MEDS ORDERED: POTASSIUM CHL 60 MEQ/NS 0.45% 500 ML IV PRN (19:39)
[2022-04-16] MEDS ORDERED: MICRO K EXTEN CAP 10 MEQ PO PRN (19:39)
[2022-04-16] MEDS ORDERED: K-RIDER 10 MEQ/NS 100 ML 10 MEQ/100 ML BAG IV PRN (19:39)
[2022-04-16] MEDS ORDERED: POTASSIUM CHLORIDE LIQ 20 MEQ UDC PO PRN (19:39)
[2022-04-16] MEDS ORDERED: POTASSIUM CHL 40 MEQ/NS 0.45% 500 ML IV PRN (19:39)
[2022-04-16] MEDS ORDERED: KLOR-CON PO PRN (19:39)
[2022-04-16] MEDS: ROBITUSSIN DM PO PRN (20:30)
[2022-04-16] MEDS: K-DUR TAB 20 MEQ PO PRN (21:02)
[2022-04-17] MEDS: XOPENEX 1.25 MG/3 ML NEBULE NEB SCH ×5 (00:12→18:08)
[2022-04-17] MEDS: NS 1,000 ML IV 1,000 ML IV SCH ×2 (03:43→20:45)
[2022-04-17] MEDS: TYLENOL 325 MG TAB PO PRN ×2 (04:57→18:07)
[2022-04-17 05:30] LABS: BASOPHILS % (AUTO) 0.4 % (0.2-1.0); EOSINOPHILS # (AUTO) 0.2 x10^3/uL (0.0-0.2); EOSINOPHILS % (AUTO) 1.6 % (0.9-2.9); HEMATOCRIT 35.1 % (36.0-47.0); LYMPHOCYTES # (AUTO) 1.7 X10^3/uL (1.3-2.9); LYMPHOCYTES % (AUTO) 16.3 % (21.0-51.0); MEAN CORPUSCULAR HEMOGLOBIN 29.7 pg (27.0-34.0); MEAN CORPUSCULAR HGB CONC 34.8 g/dL (33.0-35.0); MEAN CORPUSCULAR VOLUME 85.2 fL (80.0-100.0); MEAN PLATELET VOLUME 8.5 fL (7.4-11.0); MONOCYTES # (AUTO) 0.9 x10^3/uL (0.3-0.8); MONOCYTES % (AUTO) 8.3 % (0.0-13.0); NEUTROPHILS # (AUTO) 7.9 x10^3/uL (2.2-4.8); NEUTROPHILS % (AUTO) 73.4 % (42.0-75.0); RED BLOOD COUNT 4.12 X10^6/uL (3.5-5.4); RED CELL DISTRIBUTION WIDTH 12.7 % (11.6-16.5); WHITE BLOOD COUNT 10.7 X10^3/uL (3.6-10.0)
[2022-04-17 05:33] LABS: HEMOGLOBIN 12.2 g/dL (12.0-16.0)
[2022-04-17 05:47] LABS: ALANINE AMINOTRANSFERASE < 6 Units/L (12-78); ALBUMIN 2.6 g/dL (3.4-5.0); ALKALINE PHOSPHATASE 71 Units/L (46-116); ASPARTATE AMINO TRANSFERASE 16 Units/L (15-37); BLOOD UREA NITROGEN 10 mg/dL (7-18); CALCIUM 8.4 mg/dL (8.5-10.1); CARBON DIOXIDE 29.9 mmol/L (21-32); CHLORIDE 100 mmol/L (98-107); COR CA(FOR HYPOALB) 9.5 mg/dL (8.5-10.1); COR NA(FOR HYPERGLY) 139 mmol/L (136-145); CREATININE 0.64 mg/dL (0.55-1.02); MAGNESIUM 1.5 mg/dL (1.7-2.9); SODIUM 138 mmol/L (136-145); TOTAL PROTEIN 6.5 g/dL (6.4-8.2); eGFR NON BLACK RACES > 60 (>60)
[2022-04-17] MEDS: MAGNESIUM SULFATE 1 GRAM/100 mL PREMIX 1 G/100 ML BAG IV PRN ×2 (05:58→15:15)
[2022-04-17] MEDS: LOVENOX INJ 40 MG SYR SC SCH (09:10)
[2022-04-17] MEDS: PULMICORT NEB TX 0.5 MG NEB SCH ×2 (09:12→21:00)
[2022-04-17] MEDS: ROCEPHIN 1 GRAM IV PREMIX 1 G/50 ML IV.SOLN. IV SCH (09:12)
[2022-04-17] MEDS: NYSTATIN POWDER TOP SCH ×2 (13:15→20:26)
[2022-04-17] MEDS ORDERED: NYSTATIN POWDER ONE (15:12)
--- NOTE | 2022-04-17 15:39 | DR.H&P ---
H&P - History & Physical for Day of: H&P Date: 04/16/22 - Chief Complaint Chief Complaint: SOB - History of Present Illness History of Present Illness: Patient is a 76 year old white female who is a direct admit due to COPD exacerbation. Reports severe weakness. Patient is barely able to talk due to dyspnea. Son states symptoms worsened over the weekend. BP has been stable at home. Patient denies any chest pains. Blood sugar has been WNL at home. Denies any open or non healing wounds. Patient has been having trouble with her breathing. Son states she has been coughing persistently and reports green mucous. Patient has been wearing O2 at home. Son denies any fever or exposure to COVID. Patient complains of continued b.l shoulder pain, chronic in nature. Denies any nausea or vomiting. Denies any changes in bowel or bladder patterns. Patient voices understanding and compliance, denies any further complaints at this time. - Past Medical History Past Medical History: Arthritis, COPD, CVA, Hypertension - Past Surgical History Surgical History: Ortho Surgery, Tonsillectomy - Family History Family Medical History: Diabetes Mellitus, Cancer, [place], Coronary Artery Disease, Heart Failure, Sudden Cardiac , Hypertension - Social History Does patient currently use any type of tobacco product: No Have you used tobacco products in the last 12 months: No Type of Tobacco Use: None Does any household member use tobacco: No Alcohol Use: None Drug Use: None - Medications Home Medications: No Known Drug Allergies Allergy (Verified 03/14/22 15:49) - Review of Systems Constitutional: See HPI Eyes: See HPI ENT: See HPI Respiratory: See HPI Cardiovascular: See HPI Gastrointestinal: See HPI Genitourinary: See HPI Musculoskeletal: See HPI Skin: See HPI Neurological: See HPI - Physical Exam Vital Signs: Temperature 97.8 F Pulse Rate [Left Brachial] 86 Pulse Rate 91 Respiratory Rate 20 Blood Pressure [Left Arm] 177/80 Blood Pressure [Right Arm] 144/77 O2 Sat by Pulse Oximetry 93 Oriented: Normal Eyes: Normal Ear: Normal Nose: Normal Throat: Normal Respiratory: Rhonchi Throughout Cardiovascular: Normal : Normal Auscultation: Bowel Sounds: Normal Palpation: Normal Tenderness: Normal Skin: Decreased Turgur Musculoskeletal: Right, Left, Shoulder, Back:Lumbar, Tender, Instability Psychiatric: Anxiety Mood Description: Anxious Affect: Anxious Speech Pattern: Clear, Appropriate - Assessment/Plan (1) Weakness Status: Acute (2) Chronic respiratory failure Status: Chronic (3) Dyspnea Status: Acute (4) COPD exacerbation Status: Acute - Allergies Allergies/Adverse Reactions: Allergies Allergy/AdvReac Type Severity Reaction Status Date / Time No Known Drug Allergies Allergy Verified 03/14/22 15:49
[2022-04-17] MEDS ORDERED: LIORESAL PO PRN (15:43)
[2022-04-17] MEDS ORDERED: PATIENT'S HOME MEDICATION (Aspirin 81 mg Tablet) PO SCH (15:45)
--- NOTE | 2022-04-17 15:48 | PCM.PROG ---
Progress Note - Subjective Subjective: Patient was admitted as per HPI. Patient reports improvement in dyspnea. States her breathing much better. No new concerns at present. Patient continues to report chronic bilateral shoulder pain. - Past Medical Family Social History Past Med/Fam/Surg Hx: No changes since H&P Allergies: Allergies No Known Drug Allergies Allergy (Verified 03/14/22 15:49) - Review of Systems ROS: No change since H&P - Vital Signs and I&O's Vital Signs: Temperature 98.1 F Pulse Rate [Left Brachial] 76 Pulse Rate 91 Respiratory Rate 20 Blood Pressure [Left Arm] 136/79 Blood Pressure [Right Arm] 144/77 O2 Sat by Pulse Oximetry 93 Intake and Output: Intake & Output 04/14/22 04/15/22 04/16/22 04/17/22 23:59 23:59 23:59 23:59 Intake Total 550 / 550 850 / 850 Output Total 200 / 200 Balance 550 / 550 650 / 650 - Physical Exam Oriented: Normal Eyes: Normal Ear: Normal Nose: Normal Throat: Normal Respiratory: Generalized, Rhonchi Cardiovascular: Normal : Normal Auscultation: Bowel Sounds: Normal Palpation: Normal Tenderness: Normal Skin: Decreased Turgur Musculoskeletal: Right, Left, Shoulder, Back:Lumbar, Tender, Instability Psychiatric: Normal Mood Description: Calm Affect: Normal Speech Pattern: Clear, Appropriate - Laboratory and Diagnostics Result Diagrams: 04/17/22 04:08 04/17/22 04:08 Labs: 04/16/22 13:45 Sputum - Expectorated Sputum Sputum Culture - Preliminary 04/16/22 13:45 Sputum - Expectorated Sputum - Final 04/16/22 17:50 Urine,Clean Catch Urine Culture - Preliminary Laboratory WBC 10.7 X10^3/uL (3.6-10.0) H 04/17/22 04:08 RBC 4.12 X10^6/uL (3.5-5.4) 04/17/22 04:08 Hgb 12.2 g/dL (12.0-16.0) D 04/17/22 04:08 Hct 35.1 % (36.0-47.0) L 04/17/22 04:08 MCV 85.2 fL (80.0-100.0) 04/17/22 04:08 MCH 29.7 pg (27.0-34.0) 04/17/22 04:08 MCHC 34.8 g/dL (33.0-35.0) 04/17/22 04:08 RDW 12.7 % (11.6-16.5) 04/17/22 04:08 Plt Count 164 X10^3/uL (150.0-450.0) 04/17/22 04:08 MPV 8.5 fL (7.4-11.0) 04/17/22 04:08 Neut % (Auto) 73.4 % (42.0-75.0) 04/17/22 04:08 Lymph % (Auto) 16.3 % (21.0-51.0) L 04/17/22 04:08 Door % (Auto) 8.3 % (0.0-13.0) 04/17/22 04:08 Eos % (Auto) 1.6 % (0.9-2.9) 04/17/22 04:08 Baso % (Auto) 0.4 % (0.2-1.0) 04/17/22 04:08 Neut # (Auto) 7.9 x10^3/uL (2.2-4.8) H 04/17/22 04:08 Lymph # (Auto) 1.7 X10^3/uL (1.3-2.9) 04/17/22 04:08 Door # (Auto) 0.9 x10^3/uL (0.3-0.8) H 04/17/22 04:08 Eos # (Auto) 0.2 x10^3/uL (0.0-0.2) 04/17/22 04:08 Baso # (Auto) 0.0 X10^3/uL (0.0-0.1) 04/17/22 04:08 Absolute Nucleated RBC 0.0 /100WBC 04/17/22 04:08 Sample Site Rr 04/16/22 13:47 ABG pH 7.470 (7.35-7.45) H 04/16/22 13:47 ABG pCO2 45.0 mmHg (35.0-45.0) 04/16/22 13:47 ABG pO2 48.0 mmHg (80.0-100.0) L* 04/16/22 13:47 ABG HCO3 32.8 mmol/L (22-26) H* 04/16/22 13:47 ABG O2 Saturation 86.0 % (90-100) L 04/16/22 13:47 ABG Base Excess 8.1 mmol/L (-2.0-2.0) H 04/16/22 13:47 Adriano Test Pos 04/16/22 13:47 A-a Gradient 45.0 mmHg 04/16/22 13:47 FiO2 21.0 04/16/22 13:47 Blood Gas Comments Sanjiv well cb 04/16/22 13:47 Sodium 138 mmol/L (136-145) 04/17/22 04:08 Corrected Sodium 139 mmol/L (136-145) 04/17/22 04:08 Potassium 3.7 mmol/L (3.5-5.1) 04/17/22 04:08 Chloride 100 mmol/L (98-107) 04/17/22 04:08 Carbon Dioxide 29.9 mmol/L (21-32) 04/17/22 04:08 BUN 10 mg/dL (7-18) 04/17/22 04:08 Creatinine 0.64 mg/dL (0.55-1.02) 04/17/22 04:08 Est GFR (MDRD) Af Amer > 60 (>60) 04/17/22 04:08 Est GFR (MDRD) Non-Af > 60 (>60) 04/17/22 04:08 Glucose 149 mg/dL (65-99) H 04/17/22 04:08 POC Glucose (mg/dL) 155 mg/dL (65-99) H 04/17/22 11:44 Calcium 8.4 mg/dL (8.5-10.1) L 04/17/22 04:08 Corrected Calcium 9.5 mg/dL (8.5-10.1) 04/17/22 04:08 Magnesium 1.5 mg/dL (1.7-2.9) L 04/17/22 04:08 Total Bilirubin 0.20 mg/dL (0.2-1.0) 04/17/22 04:08 AST 16 Units/L (15-37) 04/17/22 04:08 ALT < 6 Units/L (12-78) L 04/17/22 04:08 Alkaline Phosphatase 71 Units/L (46-116) 04/17/22 04:08 Total Protein 6.5 g/dL (6.4-8.2) 04/17/22 04:08 Albumin 2.6 g/dL (3.4-5.0) L 04/17/22 04:08 Globulin 3.9 g/dL (2.5-4.5) 04/17/22 04:08 Albumin/Globulin Ratio 0.7 Ratio (1.1-2.1) L 04/17/22 04:08 Specimen Type Clean catch urine 04/16/22 17:50 Urine Color Yellow (YELLOW) 04/16/22 17:50 Urine Appearance Hazy (CLEAR) 04/16/22 17:50 Urine pH 6.0 (5.0 - 8.0) 04/16/22 17:50 Ur Specific [place] 1.020 (1.000-1.030) 04/16/22 17:50 Urine Protein 1+ (NEGATIVE) 04/16/22 17:50 Urine Glucose (UA) Negative (NEGATIVE) 04/16/22 17:50 Urine Ketones Negative (NEGATIVE) 04/16/22 17:50 Urine Blood 2+ (NEGATIVE) 04/16/22 17:50 Urine Nitrite Negative (NEGATIVE) 04/16/22 17:50 Urine Bilirubin Negative (NEGATIVE) 04/16/22 17:50 Urine Urobilinogen Normal (NORMAL) 04/16/22 17:50 Ur Leukocyte Esterase 3+ (NEGATIVE) 04/16/22 17:50 Urine RBC 0-2 /HPF (0-3) 04/16/22 17:50 Urine WBC 10-20 /HPF (0-5) A 04/16/22 17:50 Ur Squamous Epith Cells Moderate /HPF (NEGATIVE) 04/16/22 17:50 Amorphous Sediment Trace /HPF (NEGATIVE) 04/16/22 17:50 Urine Bacteria Trace /HPF (NEGATIVE) 04/16/22 17:50 Ur Culture Indicated? Yes/culture set up 04/16/22 17:50 SARS-CoV-2 (PCR) Negative (NEGATIVE) 04/16/22 19:27 - Plan (1) Weakness Status: Acute Plan: PT (2) Chronic respiratory failure Status: Chronic (3) Dyspnea Status: Acute (4) COPD exacerbation Status: Acute Plan: Oxygen prn, duo nebs, IV abx, CXR, ABG
[2022-04-17] MEDS ORDERED: PROTONIX TAB 40 MG PO SCH (16:00)
[2022-04-17] MEDS ORDERED: ZESTRIL TAB 10 MG PO SCH (16:00)
[2022-04-17] MEDS ORDERED: LASIX PO SCH (16:00)
[2022-04-17] MEDS ORDERED: LEXAPRO PO SCH (16:00)
[2022-04-17] MEDS ORDERED: GLUCOPHAGE ONE (18:05)
[2022-04-17] MEDS ORDERED: TOPROL XL PO ONE (18:05)
[2022-04-17] MEDS ORDERED: LEXAPRO ONE (18:05)
[2022-04-17] MEDS: GLUCOPHAGE PO SCH ×2 (18:07→20:24)
[2022-04-17] MEDS: ZITHROMAX INJ 500 MG VIAL 500 MG in NS 250 ML IV 250 ML IV SCH (18:07)
[2022-04-17] MEDS: TOPROL XL PO SCH ×2 (18:07→20:25)
[2022-04-17] MEDS: ASPIRIN 81 MG CHEWTAB PO SCH (18:07)
[2022-04-17] MEDS: PROTONIX TAB 40 MG PO SCH (18:07)
[2022-04-17] MEDS: LIORESAL PO SCH ×3 (18:07→21:27)
[2022-04-17] MEDS: DITROPAN TAB 5 MG PO SCH ×2 (18:07→20:24)
[2022-04-17] MEDS: LEXAPRO PO SCH (18:07)
[2022-04-17] MEDS: LASIX PO SCH (18:07)
[2022-04-17] MEDS: ZESTRIL TAB 10 MG PO SCH (18:07)
[2022-04-17] MEDS: K-DUR TAB 20 MEQ PO PRN (20:26)
[2022-04-17] MEDS ORDERED: PRAVACHOL PO SCH ×2 (21:00)
[2022-04-17] MEDS ORDERED: TOPROL XL PO SCH (21:00)
[2022-04-17] MEDS ORDERED: NEURONTIN CAP 100 MG PO SCH ×2 (21:00)
[2022-04-17] MEDS ORDERED: DITROPAN TAB 5 MG PO SCH (21:00)
[2022-04-17] MEDS ORDERED: PLAVIX PO SCH ×2 (21:00)
[2022-04-17] MEDS ORDERED: NORTRIPTYLINE 25 MG PO SCH (21:00)
[2022-04-17] MEDS ORDERED: ICOSAPENT ETHYL 1 GM PO SCH (21:00)
[2022-04-17] MEDS: ROBITUSSIN DM PO PRN (21:00)
[2022-04-17] MEDS ORDERED: GLUCOPHAGE PO SCH (21:00)
[2022-04-18] MEDS: XOPENEX 1.25 MG/3 ML NEBULE NEB SCH ×3 (00:11→13:31)
[2022-04-18 04:47] LABS: ABG BASE EXCESS 13.2 mmol/L (-2.0-2.0)
[2022-04-18 04:50] LABS: ABG ALLEN TEST POS
[2022-04-18] MEDS: LIORESAL PO SCH ×2 (05:39→14:50)
[2022-04-18] MEDS: TYLENOL 325 MG TAB PO PRN (05:39)
[2022-04-18 05:45] LABS: BASOPHILS % (AUTO) 0.4 % (0.2-1.0); EOSINOPHILS # (AUTO) 0.3 x10^3/uL (0.0-0.2); EOSINOPHILS % (AUTO) 3.8 % (0.9-2.9); HEMATOCRIT 36.9 % (36.0-47.0); HEMOGLOBIN 12.5 g/dL (12.0-16.0); LYMPHOCYTES # (AUTO) 1.8 X10^3/uL (1.3-2.9); LYMPHOCYTES % (AUTO) 20.1 % (21.0-51.0); MEAN CORPUSCULAR VOLUME 85.4 fL (80.0-100.0); MEAN PLATELET VOLUME 8.3 fL (7.4-11.0); MONOCYTES # (AUTO) 0.7 x10^3/uL (0.3-0.8); MONOCYTES % (AUTO) 8.4 % (0.0-13.0); NEUTROPHILS # (AUTO) 5.9 x10^3/uL (2.2-4.8); NEUTROPHILS % (AUTO) 67.3 % (42.0-75.0); RED BLOOD COUNT 4.32 X10^6/uL (3.5-5.4); RED CELL DISTRIBUTION WIDTH 12.8 % (11.6-16.5); WHITE BLOOD COUNT 8.8 X10^3/uL (3.6-10.0)
[2022-04-18 06:05] LABS: ALANINE AMINOTRANSFERASE 8 Units/L (12-78); ALBUMIN 2.7 g/dL (3.4-5.0); ALKALINE PHOSPHATASE 62 Units/L (46-116); ASPARTATE AMINO TRANSFERASE 12 Units/L (15-37); BLOOD UREA NITROGEN 9 mg/dL (7-18); CALCIUM 8.5 mg/dL (8.5-10.1); CARBON DIOXIDE 32.8 mmol/L (21-32); CHLORIDE 102 mmol/L (98-107); COR CA(FOR HYPOALB) 9.5 mg/dL (8.5-10.1); COR NA(FOR HYPERGLY) 141 mmol/L (136-145); CREATININE 0.57 mg/dL (0.55-1.02); SODIUM 140 mmol/L (136-145); TOTAL PROTEIN 6.6 g/dL (6.4-8.2); eGFR NON BLACK RACES > 60 (>60)
[2022-04-18] MEDS: NS 1,000 ML IV 1,000 ML IV SCH (06:35)
--- NOTE | 2022-04-18 06:56 | RAD ---
HISTORYCOPDSTUDYChest PA and [id number]/16/2022FINDINGSHeart is upper limits normal in size. Mady are normal. Aorta is calcified. Interstitial lung changes are present bilaterally mild and not significantly changed from the prior examination. There are likely chronic. No alveolar infiltrates or areas of consolidation are identified. Bony thorax is unremarkable with the exception of a left shoulder hemiarthroplasty and severe degenerative joint disease in the right glenohumeral joint.IMPRESSIONDiffuse mild interstitial lung changes stable when compared to the prior examination and likely chronicElectronically signed by: YON MARTINEZ (April 18, 2022 06:55:03)
[2022-04-18] MEDS ORDERED: GLUCOPHAGE ONE (08:46)
[2022-04-18] MEDS ORDERED: TOPROL XL PO ONE (08:46)
[2022-04-18] MEDS ORDERED: LEXAPRO ONE (08:46)
[2022-04-18] MEDS: ZITHROMAX INJ 500 MG VIAL 500 MG in NS 250 ML IV 250 ML IV SCH (09:10)
[2022-04-18] MEDS: TOPROL XL PO SCH (09:12)
[2022-04-18] MEDS: PROTONIX TAB 40 MG PO SCH (09:13)
[2022-04-18] MEDS: ZESTRIL TAB 10 MG PO SCH (09:13)
[2022-04-18] MEDS: LASIX PO SCH (09:13)
[2022-04-18] MEDS: LEXAPRO PO SCH (09:13)
[2022-04-18] MEDS: DITROPAN TAB 5 MG PO SCH (09:14)
[2022-04-18] MEDS: ASPIRIN 81 MG CHEWTAB PO SCH (09:14)
[2022-04-18] MEDS: GLUCOPHAGE PO SCH (09:14)
[2022-04-18] MEDS: LOVENOX INJ 40 MG SYR SC SCH (09:15)
[2022-04-18] MEDS ORDERED: LOVAZA PO SCH (09:15)
[2022-04-18] MEDS: NYSTATIN POWDER TOP SCH (09:15)
[2022-04-18] MEDS: PULMICORT NEB TX 0.5 MG NEB SCH (09:39)
[2022-04-18] MEDS ORDERED: ROCEPHIN VIAL 1 GRAM 1 G in NS 100 ML IV 100 ML IV SCH (10:15)
[2022-04-18 13:45] VITALS: BP 129/59
[2022-04-19 13:41] LABS: ABG HCO3 38.7 mmol/L (22-26)
--- NOTE | 2022-05-03 22:01 | PCM.DCPLAN ---
Discharge Plan - Discharge Plan Hospital Course: Admit date 04/16/22 Discharge date 04/18/22 DOS 04/18/22 Admit diagnosis (1) Weakness (2) Chronic respiratory failure (3) Dyspnea (4) COPD exacerbation Discharge diagnosis SAME Hospital Course Patient is a 76 year old white female who is a direct admit due to COPD exacerbation. Reports severe weakness. Patient is barely able to talk due to dyspnea. Son states symptoms worsened over the weekend. BP has been stable at home. Patient denies any chest pains. Blood sugar has been WNL at home. Denies any open or non healing wounds. Patient has been having trouble with her breathing. Son states she has been coughing persistently and reports green mucous. Patient has been wearing O2 at home. Son denies any fever or exposure to COVID. Patient complains of continued b.l shoulder pain, chronic in nature; refuses narcotics for treatment of pain. Denies any nausea or vomiting. Denies any changes in bowel or bladder patterns. Patient was treated with IV abx and steroids and duo nebs. Symptoms improved. Labs were unremarkable, CXR reveal ed COPD. Blood and urine cultures were negative. Sputum culture positive. Patient discharged on PO abx and added trelegy inhaler. Symptoms returned to patients baseline. Patient instructed to follow up with PCP in 1 week. Discharged with home health. Discharge time spent >35 mins. Disposition: HOME HEALTH SERVICE Condition: Stable Health Concerns: Post Hospitalization: new medications and changes needed to prevent readmission or further decline. Pt educated and given instructions on all concerns. Care Plan Goals: Problem: Respiratory Complications Goal: Improved Uncomplicated Respiratory Status Instructions: Follow provided instructions. Follow up with primary physician as directed. Contact primary care physician or report to the closest Emergency Room if condition worsens. Plan of Treatment: Continue with present treatment and follow up plan. Pt is to keep follow up appointment as instructed and take medications as ordered. Prescriptions: New Trelegy Ellipta 100-62.5-25 mcg Blister With Device 1 inh INHALATION Q24H Qty: 1 RF: 0 Transmission Status: Received by [facility] Continued aspirin 81 mg Tablet 81 mg PO DAILY baclofen 10 mg tablet 10 mg PO TID clopidogrel 75 mg tablet 75 mg PO HS escitalopram oxalate 10 mg tablet 10 mg PO DAILY furosemide 40 mg tablet 40 mg PO DAILY gabapentin 100 mg capsule 200 mg PO HS icosapent ethyl 1 gram capsule 2 g PO BID lisinopril 10 mg tablet 10 mg PO DAILY metformin 500 mg tablet 250 mg PO BID metoprolol succinate 100 mg tablet extended release 24 hr 100 mg PO BID nortriptyline 25 mg capsule 25 mg PO HS oxybutynin chloride 5 mg tablet 5 mg PO BID pantoprazole 40 mg tablet,delayed release (DR/EC) 40 mg PO DAILY pravastatin 80 mg tablet 80 mg PO HS - Follow ups/Referrals Follow ups/Referrals: KIM FUNG [STAFF PHYSICIAN] - MANDIE BROWNLEE [STAFF PHYSICIAN] - 04/26/22 2:00 pm - Instructions Instructions: Fall Prevention in the Home, Adult, Gltf-fz-[id number], Stroke Prevention, Qswz-my-Tszv, Type 2 Diabetes Mellitus, Self-Care, Adult, Nyyi-ca-Hiuz, Chronic Obstructive Pulmonary Disease Exacerbation, Kibs-me-Dlgc, Hypertension, Adult, Hfrv-vf-Shxl Forms: Precautions for COVIL19, [facility], Patient Portal, Social Distancing Print Language: SAMMARINESE - Patient Education Addl Reference Links: Living with COPD [email or web address] [email or web address]&patientPerson.administrati veGenderCode.c=F&patientPerson.administrativeGenderCode.dn=Female&age.v.v=76&age .v.u=a&performer=PROV&informationRecipient=PAT&performer.languageCode.c=en&Ariela earchCriteria.v.dn=COPD&f=[email or web address]
== END 2022-04-18 15:00 | disposition home health service (06) ==
LOC: MED/SURG
PROVIDERS: ADMIT Internal Medicine; ATTEND Internal Medicine

== ENCOUNTER 2023-02-25 17:20 | Observation (INO) ==
[2023-02-25] MEDS ORDERED: NS 1,000 ML IV 1,000 ML ONE ×2 (17:23→19:09)
--- NOTE | 2023-02-25 17:23 | DR.GENAD ---
HPI Time Seen Time Seen by Provider: 02/25/23 17:23 PMH PMH Past Medical History: Arthritis, COPD, CVA and Hypertension Past Surgical History: Yes Surgical History: Ortho Surgery and Tonsillectomy Family History Family Medical History: Diabetes Mellitus, Cancer, [place], Coronary Artery Disease, Heart Failure, Sudden Cardiac and Hypertension Social History Do you use any recreational Drugs:: No PE Vital Signs Vitals: Temperature 98.1 F Pulse Rate 62 Respiratory Rate 16 Blood Pressure [Left Arm] 129/59 Blood Pressure 104/57 O2 Sat by Pulse Oximetry 99 ROR Labs Reviewed Result Diagrams: 02/25/23 18:20 02/25/23 18:20 Laboratory: WBC 9.9 X10^3/uL (3.6-10.0) 02/25/23 18:20 RBC 3.92 X10^6/uL (3.5-5.4) 02/25/23 18:20 Hgb 11.5 g/dL (12.0-16.0) L 02/25/23 18:20 Hct 34.5 % (36.0-47.0) L 02/25/23 18:20 MCV 88.0 fL (80.0-100.0) 02/25/23 18:20 MCH 29.4 pg (27.0-34.0) 02/25/23 18:20 MCHC 33.4 g/dL (33.0-35.0) 02/25/23 18:20 RDW 14.2 % (11.6-16.5) 02/25/23 18:20 Plt Count 157 X10^3/uL (150.0-450.0) 02/25/23 18:20 MPV 8.5 fL (7.4-11.0) 02/25/23 18:20 Neut % (Auto) 72.0 % (42.0-75.0) 02/25/23 18:20 Lymph % (Auto) 18.3 % (21.0-51.0) L 02/25/23 18:20 [place] % (Auto) 7.4 % (0.0-13.0) 02/25/23 18:20 Eos % (Auto) 1.8 % (0.9-2.9) 02/25/23 18:20 Baso % (Auto) 0.5 % (0.2-1.0) 02/25/23 18:20 Neut # (Auto) 7.1 x10^3/uL (2.2-4.8) H 02/25/23 18:20 Lymph # (Auto) 1.8 X10^3/uL (1.3-2.9) 02/25/23 18:20 [place] # (Auto) 0.7 x10^3/uL (0.3-0.8) 02/25/23 18:20 Eos # (Auto) 0.2 x10^3/uL (0.0-0.2) 02/25/23 18:20 Baso # (Auto) 0.0 X10^3/uL (0.0-0.1) 02/25/23 18:20 Absolute Nucleated RBC 0.0 /100WBC 02/25/23 18:20 Sodium 139 mmol/L (136-145) 02/25/23 18:20 Corrected Sodium 140 mmol/L (136-145) 02/25/23 18:20 Potassium 3.8 mmol/L (3.5-5.1) 02/25/23 18:20 Chloride 105 mmol/L (98-107) 02/25/23 18:20 Carbon Dioxide 27.9 mmol/L (21-32) 02/25/23 18:20 BUN 19 mg/dL (7-18) H 02/25/23 18:20 Creatinine 0.69 mg/dL (0.55-1.02) 02/25/23 18:20 Est GFR (MDRD) Af Amer > 60 (>60) 02/25/23 18:20 Est GFR (MDRD) Non-Af > 60 (>60) 02/25/23 18:20 Glucose 150 mg/dL (65-99) H 02/25/23 18:20 Calcium 7.8 mg/dL (8.5-10.1) L 02/25/23 18:20 Corrected Calcium 8.4 mg/dL (8.5-10.1) L 02/25/23 18:20 Total Bilirubin 0.20 mg/dL (0.2-1.0) 02/25/23 18:20 AST 12 Units/L (15-37) L 02/25/23 18:20 ALT 9 Units/L (12-78) L 02/25/23 18:20 Alkaline Phosphatase 41 Units/L (46-116) L 02/25/23 18:20 Creatine Kinase 36 Units/L (26-192) 02/25/23 18:20 Troponin I High Sens 8.9 ng/L (4.0-60.0) 02/25/23 18:20 Total Protein 5.8 g/dL (6.4-8.2) L 02/25/23 18:20 Albumin 3.2 g/dL (3.4-5.0) L 02/25/23 18:20 Globulin 2.6 g/dL (2.5-4.5) 02/25/23 18:20 Albumin/Globulin Ratio 1.2 Ratio (1.1-2.1) 02/25/23 18:20 Opioid Opioid Risk Tool Age (Hi box if 16-45): No History of Preadolescent Sexual Abuse: No Total: 0 Total Score Risk Category: Low Risk Copyright: Francis AUGUSTINE predicting aberrant behaviors Discharge Plan Discharge Plan Patient Disposition: 01 HOME, SELF-CARE Condition: Stable Orders to Discharge Patient Discharge Orders: Transfer (Routine); Ordered 02/25/23 Ordered By: BRENNEN FITZGERALD
[2023-02-25] MEDS ORDERED: NS 1,000 ML IV 1,000 ML IV ONE (17:29)
--- NOTE | 2023-02-25 18:15 | EKG ---
Test Reason : FALL Blood Pressure : */* mmHG Vent. Rate : 67 BPM Atrial Rate : 67 BPM P-R Int : 146 ms QRS Dur : 88 ms QT Int : 440 ms P-R-T Axes : 34 -25 -35 degrees QTc Int : 464 ms Normal sinus rhythm Possible Left atrial enlargement Abnormal ECG No previous ECGs available Confirmed by Berny Bernal ([id number]) on 02/27/2023 10:36:09 AM Referred By: Confirmed By: Berny Bernal
[2023-02-25 18:27] LABS: BASOPHILS % (AUTO) 0.5 % (0.2-1.0); EOSINOPHILS # (AUTO) 0.2 x10^3/uL (0.0-0.2); EOSINOPHILS % (AUTO) 1.8 % (0.9-2.9); HEMATOCRIT 34.5 % (36.0-47.0); HEMOGLOBIN 11.5 g/dL (12.0-16.0); LYMPHOCYTES # (AUTO) 1.8 X10^3/uL (1.3-2.9); LYMPHOCYTES % (AUTO) 18.3 % (21.0-51.0); MEAN CORPUSCULAR HEMOGLOBIN 29.4 pg (27.0-34.0); MEAN CORPUSCULAR HGB CONC 33.4 g/dL (33.0-35.0); MEAN PLATELET VOLUME 8.5 fL (7.4-11.0); MONOCYTES # (AUTO) 0.7 x10^3/uL (0.3-0.8); MONOCYTES % (AUTO) 7.4 % (0.0-13.0); NEUTROPHILS # (AUTO) 7.1 x10^3/uL (2.2-4.8); RED BLOOD COUNT 3.92 X10^6/uL (3.5-5.4); RED CELL DISTRIBUTION WIDTH 14.2 % (11.6-16.5); WHITE BLOOD COUNT 9.9 X10^3/uL (3.6-10.0)
[2023-02-25 18:39] LABS: ALANINE AMINOTRANSFERASE 9 Units/L (12-78); ALBUMIN 3.2 g/dL (3.4-5.0); ALKALINE PHOSPHATASE 41 Units/L (46-116); ASPARTATE AMINO TRANSFERASE 12 Units/L (15-37); BLOOD UREA NITROGEN 19 mg/dL (7-18); CALCIUM 7.8 mg/dL (8.5-10.1); CARBON DIOXIDE 27.9 mmol/L (21-32); CHLORIDE 105 mmol/L (98-107); COR CA(FOR HYPOALB) 8.4 mg/dL (8.5-10.1); COR NA(FOR HYPERGLY) 140 mmol/L (136-145); CREATINE KINASE 36 Units/L (26-192); CREATININE 0.69 mg/dL (0.55-1.02); SODIUM 139 mmol/L (136-145); TOTAL PROTEIN 5.8 g/dL (6.4-8.2); eGFR NON BLACK RACES > 60 (>60)
[2023-02-25] MEDS: NS 1,000 ML IV 1,000 ML IV SCH (19:15)
[2023-02-25] MEDS ORDERED: XOPENEX 1.25 MG/3 ML NEBULE NEB PRN (21:14)
[2023-02-25] MEDS ORDERED: PATIENT'S HOME MEDICATION (Fluticasone-Umeclidin-Vilanter [Trelegy Ellipta] 100-62.5-25 mc IN SCH (21:14)
[2023-02-25] MEDS ORDERED: ICOSAPENT ETHYL 1 GM PO SCH (21:14)
[2023-02-25 21:45] LABS: BILIRUBIN,URINE NEGATIVE (NEGATIVE); BLOOD/HEMOGLOBIN,URINE NEGATIVE (NEGATIVE); GLUCOSE, URINE NEGATIVE (NEGATIVE); KETONES,URINE NEGATIVE (NEGATIVE); LEUKOCYTE ESTERASE ,URINE 2+ (NEGATIVE); NITRITES,URINE NEGATIVE (NEGATIVE); PROTEIN,URINE NEGATIVE (NEGATIVE); UROBILINOGEN,URINE NORMAL (NORMAL)
[2023-02-25 21:48] VITALS: BMI 33.6
[2023-02-25] MEDS ORDERED: BUTT CREAM (COMPOUND) TOP PRN (21:59)
[2023-02-25 22:21] LABS: APPEARANCE,URINE CLEAR (CLEAR); COLOR,URINE YELLOW (YELLOW)
[2023-02-25 22:22] LABS: BACTERIA,URINE TRACE /HPF (NEGATIVE); HYALINE CASTS, URINE FEW /LPF (NEGATIVE); RBC,URINE 0-2 /HPF (0-3); SQUAMOUS EPITHELIAL CELL,UR FEW /HPF (NEGATIVE)
[2023-02-25] MEDS ORDERED: TOPROL XL PO ONE (22:23)
[2023-02-25] MEDS ORDERED: GLUCOPHAGE ONE (22:23)
[2023-02-25] MEDS ORDERED: NYSTATIN POWDER ONE (22:24)
[2023-02-25] MEDS: NEURONTIN CAP 100 MG PO SCH (22:31)
[2023-02-25] MEDS: PRAVACHOL PO SCH (22:31)
[2023-02-25] MEDS: GLUCOPHAGE PO SCH (22:32)
[2023-02-25] MEDS: TOPROL XL PO SCH (22:33)
[2023-02-25] MEDS: LIORESAL PO SCH (22:33)
[2023-02-25] MEDS: DITROPAN TAB 5 MG PO SCH (22:33)
[2023-02-25] MEDS: TOPAMAX PO SCH (22:34)
[2023-02-25] MEDS: NYSTATIN POWDER TOP SCH (22:36)
[2023-02-25] MEDS: TYLENOL 325 MG TAB PO PRN (23:07)
[2023-02-26] MEDS: NORTRIPTYLINE 25 MG PO SCH ×2 (00:14→20:34)
[2023-02-26] MEDS: LIORESAL PO SCH ×3 (05:04→21:18)
[2023-02-26] MEDS: NS 1,000 ML IV 1,000 ML IV SCH ×3 (05:04→19:47)
[2023-02-26 06:31] LABS: BASOPHILS # (AUTO) 0.1 X10^3/uL (0.0-0.1); BASOPHILS % (AUTO) 0.6 % (0.2-1.0); EOSINOPHILS # (AUTO) 0.3 x10^3/uL (0.0-0.2); EOSINOPHILS % (AUTO) 3.4 % (0.9-2.9); HEMATOCRIT 27.8 % (36.0-47.0); HEMOGLOBIN 9.6 g/dL (12.0-16.0); LYMPHOCYTES # (AUTO) 2.3 X10^3/uL (1.3-2.9); LYMPHOCYTES % (AUTO) 25.8 % (21.0-51.0); MEAN CORPUSCULAR HEMOGLOBIN 30.1 pg (27.0-34.0); MEAN CORPUSCULAR HGB CONC 34.4 g/dL (33.0-35.0); MEAN CORPUSCULAR VOLUME 87.4 fL (80.0-100.0); MEAN PLATELET VOLUME 8.7 fL (7.4-11.0); MONOCYTES # (AUTO) 0.9 x10^3/uL (0.3-0.8); MONOCYTES % (AUTO) 10.2 % (0.0-13.0); NEUTROPHILS # (AUTO) 5.3 x10^3/uL (2.2-4.8); RED BLOOD COUNT 3.18 X10^6/uL (3.5-5.4); RED CELL DISTRIBUTION WIDTH 14.2 % (11.6-16.5); WHITE BLOOD COUNT 8.8 X10^3/uL (3.6-10.0)
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
[2023-02-26 06:34] LABS: ALANINE AMINOTRANSFERASE 8 Units/L (12-78); ALBUMIN 2.8 g/dL (3.4-5.0); ALKALINE PHOSPHATASE 34 Units/L (46-116); ASPARTATE AMINO TRANSFERASE 11 Units/L (15-37); BLOOD UREA NITROGEN 15 mg/dL (7-18); CALCIUM 7.7 mg/dL (8.5-10.1); CARBON DIOXIDE 28.8 mmol/L (21-32); CHLORIDE 108 mmol/L (98-107); COR CA(FOR HYPOALB) 8.7 mg/dL (8.5-10.1); CREATININE 0.56 mg/dL (0.55-1.02); SODIUM 142 mmol/L (136-145); eGFR NON BLACK RACES > 60 (>60)
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
[2023-02-26] MEDS ORDERED: LEXAPRO ONE (08:08)
[2023-02-26] MEDS ORDERED: TOPROL XL PO ONE ×2 (08:08→20:05)
[2023-02-26] MEDS ORDERED: GLUCOPHAGE ONE ×2 (08:08→20:04)
[2023-02-26] MEDS: TYLENOL 325 MG TAB PO PRN ×2 (08:58→21:35)
[2023-02-26] MEDS: GLUCOPHAGE PO SCH ×2 (08:58→20:33)
[2023-02-26] MEDS: PLAVIX PO SCH (08:58)
[2023-02-26] MEDS: ASPIRIN EC 81 MG PO SCH (08:58)
[2023-02-26] MEDS: NYSTATIN POWDER TOP SCH ×2 (08:59→20:35)
[2023-02-26] MEDS: LEXAPRO PO SCH (08:59)
[2023-02-26] MEDS: DITROPAN TAB 5 MG PO SCH ×2 (08:59→20:33)
[2023-02-26] MEDS: PROTONIX TAB 40 MG PO SCH (08:59)
[2023-02-26] MEDS: TOPROL XL PO SCH ×2 (09:00→20:31)
[2023-02-26] MEDS ORDERED: PATIENT'S HOME MEDICATION (Aspirin 81 mg Tablet) PO SCH (09:00)
[2023-02-26] MEDS: TOPAMAX PO SCH ×2 (09:00→20:31)
[2023-02-26] MEDS ORDERED: PULMICORT NEB TX 0.5 MG NEB SCH (09:00)
[2023-02-26] MEDS ORDERED: POTASSIUM CHLORIDE LIQ 20 MEQ UDC PO PRN (09:44)
[2023-02-26] MEDS ORDERED: KLOR-CON PO PRN (09:44)
[2023-02-26] MEDS ORDERED: K-DUR TAB 20 MEQ PO PRN (09:44)
[2023-02-26] MEDS ORDERED: Atrovent NEB TX 0.02% NEB SCH (14:00)
[2023-02-26] MEDS ORDERED: LOVENOX INJ 40 MG SYR SC SCH (16:00)
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
[2023-02-26] MEDS: PRAVACHOL PO SCH (20:30)
[2023-02-26] MEDS: NEURONTIN CAP 100 MG PO SCH (20:32)
[2023-02-27] MEDS: NS 1,000 ML IV 1,000 ML IV SCH (02:52)
[2023-02-27 05:36] LABS: BASOPHILS # (AUTO) 0.1 X10^3/uL (0.0-0.1); BASOPHILS % (AUTO) 0.6 % (0.2-1.0); EOSINOPHILS # (AUTO) 0.4 x10^3/uL (0.0-0.2); EOSINOPHILS % (AUTO) 5.1 % (0.9-2.9); HEMATOCRIT 27.1 % (36.0-47.0); LYMPHOCYTES # (AUTO) 2.1 X10^3/uL (1.3-2.9); LYMPHOCYTES % (AUTO) 25.5 % (21.0-51.0); MEAN CORPUSCULAR HEMOGLOBIN 29.4 pg (27.0-34.0); MEAN CORPUSCULAR HGB CONC 33.3 g/dL (33.0-35.0); MEAN CORPUSCULAR VOLUME 88.2 fL (80.0-100.0); MEAN PLATELET VOLUME 8.9 fL (7.4-11.0); MONOCYTES # (AUTO) 0.7 x10^3/uL (0.3-0.8); MONOCYTES % (AUTO) 8.7 % (0.0-13.0); NEUTROPHILS % (AUTO) 60.1 % (42.0-75.0); RED BLOOD COUNT 3.07 X10^6/uL (3.5-5.4); RED CELL DISTRIBUTION WIDTH 13.9 % (11.6-16.5); WHITE BLOOD COUNT 8.3 X10^3/uL (3.6-10.0)
[2023-02-27] MEDS: LIORESAL PO SCH (05:43)
[2023-02-27] MEDS: TYLENOL 325 MG TAB PO PRN (05:45)
[2023-02-27 05:48] LABS: ALANINE AMINOTRANSFERASE 8 Units/L (12-78); ALBUMIN 2.6 g/dL (3.4-5.0); ALKALINE PHOSPHATASE 38 Units/L (46-116); ASPARTATE AMINO TRANSFERASE 8 Units/L (15-37); BLOOD UREA NITROGEN 12 mg/dL (7-18); CALCIUM 7.8 mg/dL (8.5-10.1); CARBON DIOXIDE 28.8 mmol/L (21-32); CHLORIDE 111 mmol/L (98-107); COR CA(FOR HYPOALB) 8.9 mg/dL (8.5-10.1); CREATININE 0.53 mg/dL (0.55-1.02); SODIUM 144 mmol/L (136-145); TOTAL PROTEIN 5.1 g/dL (6.4-8.2); eGFR NON BLACK RACES > 60 (>60)
[2023-02-27] MEDS ORDERED: NORCO 5/325 MG TAB PO ONE (09:51)
[2023-02-27] MEDS ORDERED: GLUCOPHAGE ONE (09:55)
[2023-02-27] MEDS ORDERED: LEXAPRO ONE (09:55)
[2023-02-27] MEDS ORDERED: TOPROL XL PO ONE (09:56)
[2023-02-27] MEDS: LEXAPRO PO SCH (10:09)
[2023-02-27] MEDS: PROTONIX TAB 40 MG PO SCH (10:09)
[2023-02-27] MEDS: ASPIRIN EC 81 MG PO SCH (10:09)
[2023-02-27] MEDS: GLUCOPHAGE PO SCH (10:10)
[2023-02-27] MEDS: PLAVIX PO SCH (10:11)
[2023-02-27] MEDS: DITROPAN TAB 5 MG PO SCH (10:11)
[2023-02-27] MEDS: TOPROL XL PO SCH (10:11)
[2023-02-27] MEDS: TOPAMAX PO SCH (10:12)
[2023-02-27] MEDS: NYSTATIN POWDER TOP SCH (10:16)
[2023-02-27 12:51] VITALS: BP 121/57
== END 2023-02-27 14:50 | disposition home health service (06) ==
LOC: ER 17:20 → MED/SURG 17:20
PROVIDERS: ADMIT Internal Medicine; ATTEND Internal Medicine
DX: S81.811A Laceration without foreign body, right lower leg, initial encounter; R94.31 Abnormal electrocardiogram [ECG] [EKG]; I95.89 Other hypotension; V00.832A Motorized mobility scooter colliding with stationary object, initial encounter; S90.31XA Contusion of right foot, initial encounter; R60.0 Localized edema; S87.81XA Crushing injury of right lower leg, initial encounter; I10 Essential (primary) hypertension; Y92.9 Unspecified place or not applicable; J44.9 Chronic obstructive pulmonary disease, unspecified